=== PATIENT | male | born 1950 | race Two or more races ===

== ENCOUNTER 2021-04-08 08:38 | Outpatient (CLI) | payer OTHER | END 2021-04-08 08:53 | disposition home or self-care (01) | LOC: TOM 08:38 | PROVIDERS: ATTEND Internal Medicine Gastroenterology | DX: K76.0 Fatty (change of) liver, not elsewhere classified (principal); N40.0 Benign prostatic hyperplasia without lower urinary tract symptoms; R10.84 Generalized abdominal pain; R63.4 Abnormal weight loss; R13.19 Other dysphagia; K92.1 Melena | CPT/HCPCS: 74177; Q9965 ==